=== PATIENT | female | born 1955 | race Caucasian/White ===

== ENCOUNTER 2024-12-05 22:43 | Emergency (ER) | payer MEDICARE ==
[2024-12-05] MEDS: methylPREDNISolone Sodium Succinate 125 MG/2 ML SDV IM ONE (23:19)
[2024-12-05] MEDS: EPINEPHrine 1 MG/ML SDV IM ONE (23:19)
[2024-12-05] MEDS: diphenhydrAMINE 25 MG Cap PO ONE (23:21)
[2024-12-05] MEDS: diphenhydrAMINE 50 MG/ML SDV IM ONE (23:22)
[2024-12-05] MEDS: predniSONE 20 MG Tab PO ONE (23:22)
== END 2024-12-06 01:12 | disposition home or self-care (01) ==
LOC: JP.ED 22:43
DX: T78.40XA Allergy, unspecified, initial encounter (principal); Z88.8 Allergy status to other drugs, medicaments and biological substances
CPT/HCPCS: 96372; 99283; J0171; J1200; J2919

== ENCOUNTER 2025-01-09 07:01 | Inpatient (IN) | payer MEDICARE ==
[~2025-01-09 07:01] MED LIST: Lactated Ringers 1,000 ML IV SCH; Nozin Nasal Sanitizer NASBOTH SCH; ceFAZolin 2 GM in Premix Bag 1 BAG IV ONE
[2025-01-09] MEDS ORDERED: fentaNYL 100 MCG/2 ML SDV ONE (07:22)
[2025-01-09] MEDS ORDERED: Midazolam 1 MG/ML 2 ML SDV ONE (07:22)
[2025-01-09] MEDS ORDERED: Propofol 200 MG/20 ML SDV ONE ×2 (07:22→10:47)
[2025-01-09 07:38] LABS: HEMATOCRIT 39.3 % (34.3-46.0); HEMOGLOBIN 13.4 g/dL (11.2-15.5); MEAN CORPUSCULAR HEMOGLOBIN 31.2 pg (31.6-35.5); MEAN CORPUSCULAR HGB CONC 34.1 g/dL (31.6-35.5); MEAN CORPUSCULAR VOLUME 91.4 fL (81.4-99.0); RED BLOOD CELL COUNT 4.3 M/uL (3.77-5.24); WHITE BLOOD CELL COUNT,WBC 9.1 K/uL (3.2-11.0)
[2025-01-09] MEDS ORDERED: Nozin Nasal Sanitizer NASBOTH ONE (08:00)
[2025-01-09 08:01] LABS: ALANINE AMINOTRANSFERASE,ALT 40 U/L (12-78); ALBUMIN 3.6 g/dL (3.4-5.0); ALKALINE PHOSPHATASE 108 U/L (46-116); ASPARTATE AMNIOTRANSFERASE,AST 32 U/L (15-37); BILIRUBIN TOTAL 0.5 mg/dL (0.2-1.0); BLOOD UREA NITROGEN,BUN 12 mg/dL (7-18); CALCIUM 9.6 mg/dL (8.5-10.1); CARBON DIOXIDE,CO2 31 mmol/L (21-32); CHLORIDE,CL 102 mmol/L (100-108); CREATININE 0.8 mg/dL (0.6-1.0); ESTIMATED GFR 80 mL/min (>60); GLUCOSE RANDOM 100 mg/dL (74-106); POTASSIUM,K 3.2 mmol/L (3.6-5.2); PROTEIN TOTAL,TP 7.3 g/dL (6.4-8.2); SODIUM,NA 139 mmol/L (140-148)
[2025-01-09 08:02] LABS: ANION GAP 9.2 mmol/L (5.0-14.0)
[2025-01-09] MEDS: Lactated Ringers 1,000 ML IV SCH (08:28)
[2025-01-09] MEDS: Nozin Nasal Sanitizer NASBOTH SCH ×2 (08:28→21:47)
[2025-01-09] MEDS: ceFAZolin 2 GM in Premix Bag 1 BAG IV ONE (10:20)
[2025-01-09] MEDS: Tranexamic Acid 1,000 MG in Sodium Chloride 0.9% 50 ML IV ONE (10:47)
[2025-01-09] MEDS: Bupivacaine 0.5% 50 ML MDV ONE (12:15)
[2025-01-09] MEDS ORDERED: Magnesium Hydroxide 400 MG/5 ML Susp 30 ML Cup PO PRN (12:30)
[2025-01-09] MEDS ORDERED: Ketoconazole 2% Crm 30 GM Tube TOP PRN (12:31)
[2025-01-09] MEDS ORDERED: oxyCODONE 5 MG Tab PO PRN ×2 (12:31→17:05)
[2025-01-09] MEDS ORDERED: Clobetasol 0.05% Crm 30 GM Tube TOP SCH (12:45)
[2025-01-09] MEDS: Ketorolac 15 MG/ML SDV IVPUSH PRN (13:47)
[2025-01-09] MEDS: oxyCODONE 5 MG Tab PO PRN ×2 (13:47→18:46)
[2025-01-09] MEDS: Sodium Chloride 0.9% 1,000 ML IV SCH (13:52)
[2025-01-09] MEDS ORDERED: valACYclovir 500 MG Tab PO PRN (14:02)
[2025-01-09] MEDS ORDERED: Hypromellose 0.3% Ophth Soln 15 ML Bottle EYEBOTH PRN (14:13)
[2025-01-09] MEDS: Acetaminophen 325 MG Tab PO SCH (14:14)
[2025-01-09] MEDS: Morphine 2 MG/ML SYRINGE IVPUSH PRN (14:34)
[2025-01-09] MEDS: ceFAZolin 2 GM in Premix Bag 1 BAG IV SCH (16:23)
[2025-01-09] MEDS: Pantoprazole 40 MG Tab.CR PO SCH (16:27)
[2025-01-09] MEDS ORDERED: Naloxone 0.4 MG/ML SDV IVPUSH PRN (16:39)
[2025-01-09] MEDS: HYDROmorphone 1 MG/ML Syringe IVPUSH ONE (16:48)
[2025-01-09] MEDS: Ondansetron 4 MG/2 ML SDV IVPUSH PRN (18:41)
[2025-01-09] MEDS: HYDROmorphone 1 MG/ML Syringe IVPUSH PRN (19:06)
[2025-01-09] MEDS ORDERED: Non-Formulary Medication 1 Each (Estradiol [Estrace 0.01% Vaginal Crm] 42.5 GM Tube) VAG SCH (21:00)
[2025-01-09] MEDS: Docusate Sodium 100 MG Cap PO PRN (22:35)
[2025-01-10] MEDS ORDERED: Non-Formulary Medication 1 Each (Omeprazole [Omeprazole] 20 MG Cap.Cr) PO SCH (09:00)
[2025-01-10] MEDS ORDERED: Non-Formulary Medication 1 Each (Turmeric [Turmeric] 400 MG Capsule) PO SCH (09:00)
[2025-01-10] MEDS: Aspirin 325 MG Tab.EC PO SCH (09:31)
[2025-01-10] MEDS: Multivitamins with Iron/Calcium/Folic Acid/Minerals Tab PO SCH (09:32)
[2025-01-10] MEDS: Fish Oil/Omega-3 Fatty Acids 1 Gm Cap PO SCH (09:32)
[2025-01-10] MEDS: HYDROmorphone 2 MG Tab PO PRN (14:13)
[2025-01-10] MEDS: Calcium Carbonate 500 MG Tab.Chew PO PRN (21:47)
[2025-01-11] MEDS: Sennosides 8.6 MG Tab PO PRN (08:35)
[2025-01-11] MEDS: Morphine 15 MG Tab.ER PO SCH (14:44)
== END 2025-01-12 11:25 | disposition home or self-care (01) | DRG 470 ==
LOC: JP.SDS 07:01 → JP.MS 12:30 → JP.SDS 01-10 11:32 → JP.MS 01-10 11:32
PROVIDERS: ADMIT Specialist; ATTEND Specialist
PROC: 0SRC069 Replacement of Right Knee Joint with Oxidized Zirconium on Polyethylene Synthetic Substitute, Cemented, Open Approach (ICD-10-PCS; principal; 2025-01-09 08:30)
DX: M17.11 Unilateral primary osteoarthritis, right knee (principal)
CPT/HCPCS: 01400-QZ; 36415; 73560-26-RT; 73560-RT; 80053; 84132; 85027; 97110-GP; 97116-GP; 97161-GP; 97165-GO; 97535-GO; A9270-GY; C1713; C1776; J0665; J0690; J1171; J1885; J2250; J2270; J2405; J2704; J3010; J7030; J7120

== ENCOUNTER 2025-04-28 17:40 | Emergency (ER) | payer MEDICARE ==
[2025-04-28] MEDS ORDERED: Sodium Chloride 0.9% 10 ML Syringe FLUSH PRN (19:10)
[2025-04-28] MEDS: Ondansetron 4 MG/2 ML SDV IVPUSH ONE (19:26)
[2025-04-28] MEDS: Ketorolac 15 MG/ML SDV IVPUSH ONE (19:26)
[2025-04-28] MEDS: Morphine 4 MG/ML Syringe IVPUSH ONE ×2 (19:26→21:43)
[2025-04-28] MEDS: HYDROmorphone 1 MG/ML Syringe IVPUSH ONE (21:43)
== END 2025-04-28 22:38 | disposition home or self-care (01) ==
LOC: JP.ED 17:40
DX: M25.562 Pain in left knee (principal); M79.662 Pain in left lower leg; I10 Essential (primary) hypertension; E78.00 Pure hypercholesterolemia, unspecified; Z88.8 Allergy status to other drugs, medicaments and biological substances; Z91.013 Allergy to seafood; Z79.899 Other long term (current) drug therapy
CPT/HCPCS: 93971; 96374; 96375; 99283; J1171; J1885; J2270; J2405

== ENCOUNTER 2025-06-10 09:05 | Inpatient (IN) | payer MEDICARE ==
[~2025-06-10 09:05] MED LIST changes: -Lactated Ringers 1,000 ML IV SCH; +Midazolam 1 MG/ML 2 ML SDV ONE; -Nozin Nasal Sanitizer NASBOTH SCH; +Propofol 200 MG/20 ML SDV ONE; -ceFAZolin 2 GM in Premix Bag 1 BAG IV ONE; +fentaNYL 100 MCG/2 ML SDV ONE
[2025-06-10 09:41] LABS: PLATELET COUNT,PLT 236.0 K/uL (130-375); RED BLOOD CELL COUNT 4.38 M/uL (3.77-5.24); WHITE BLOOD CELL COUNT,WBC 7.7 K/uL (3.2-11.0)
[2025-06-10] MEDS: Nozin Nasal Sanitizer NASBOTH SCH ×2 (09:58→21:43)
[2025-06-10] MEDS: Lactated Ringers 1,000 ML IV SCH (09:59)
[2025-06-10] MEDS ORDERED: Midazolam 1 MG/ML 2 ML SDV ONE (10:04)
[2025-06-10] MEDS ORDERED: fentaNYL 100 MCG/2 ML SDV ONE (10:04)
[2025-06-10] MEDS ORDERED: Propofol 200 MG/20 ML SDV ONE ×3 (10:04→12:07)
[2025-06-10 10:11] LABS: A/G RATIO 1.0 (1.2-2.2); ALANINE AMINOTRANSFERASE,ALT 65 U/L (12-78); ASPARTATE AMNIOTRANSFERASE,AST 41 U/L (15-37); BILIRUBIN TOTAL 0.6 mg/dL (0.2-1.0); BLOOD UREA NITROGEN,BUN 12 mg/dL (7-18); CARBON DIOXIDE,CO2 31 mmol/L (21-32); CHLORIDE,CL 103 mmol/L (100-108); CREATININE 0.7 mg/dL (0.6-1.0); EST CRCL DRUG DOSING (CG) 71.01 mL/min; ESTIMATED GFR 94 mL/min (>60); GLUCOSE RANDOM 97 mg/dL (74-106); POTASSIUM,K 3.4 mmol/L (3.6-5.2); PROTEIN TOTAL,TP 7.7 g/dL (6.4-8.2); SODIUM,NA 140 mmol/L (140-148)
[2025-06-10] MEDS ORDERED: Ondansetron 4 MG/2 ML SDV ONE (10:33)
[2025-06-10] MEDS ORDERED: Lactated Ringers 1,000 ML ONE (10:40)
[2025-06-10] MEDS ORDERED: Ketoconazole 2% Crm 30 GM Tube TOP PRN (13:06)
[2025-06-10] MEDS ORDERED: Ondansetron 4 MG/2 ML SDV IVPUSH PRN (13:07)
[2025-06-10] MEDS ORDERED: Magnesium Hydroxide 400 MG/5 ML Susp 30 ML Cup PO PRN (13:07)
[2025-06-10] MEDS ORDERED: Non-Formulary Medication 1 Each (Estradiol [Estrace 0.01% Vaginal Crm] 42.5 GM Tube) VAG SCH (13:15)
[2025-06-10] MEDS ORDERED: Naloxone 0.4 MG/ML SDV IVPUSH PRN (15:41)
[2025-06-10] MEDS: Ketorolac 30 MG/ML SDV IVPUSH PRN (20:07)
[2025-06-10] MEDS ORDERED: Hypromellose 0.3% Ophth Soln 15 ML Bottle EYEBOTH PRN (21:00)
[2025-06-11] MEDS: Aspirin 325 MG Tab.EC PO SCH (08:44)
[2025-06-11] MEDS: Calcium Carbonate/Vitamin D3 1500 MG-400 Units Tab PO SCH (08:44)
[2025-06-11] MEDS: Multivitamins with Iron/Calcium/Folic Acid/Minerals Tab PO SCH (08:44)
[2025-06-11] MEDS ORDERED: OMEGA PO SCH (09:00)
[2025-06-11] MEDS ORDERED: DHA PO SCH (09:00)
[2025-06-11] MEDS ORDERED: [UNRECOGNIZED DRUG - OTHER] PO SCH (09:00)
[2025-06-11] MEDS ORDERED: EPA PO SCH (09:00)
[2025-06-11] MEDS ORDERED: D3 PO SCH (09:00)
[2025-06-12] MEDS: Ondansetron 4 MG Tab.DIS PO PRN (09:10)
== END 2025-06-13 13:45 | disposition home or self-care (01) | DRG 470 ==
LOC: JP.SDS 09:05 → JP.MS 13:07 → JP.SDS 06-11 08:51 → JP.MS 06-11 08:52
PROVIDERS: ADMIT Physician Assistant; ATTEND Specialist
PROC: 0SRD0JZ Replacement of Left Knee Joint with Synthetic Substitute, Open Approach (ICD-10-PCS; principal; 2025-06-10 10:30)
PROC: 0SBC4ZZ Excision of Right Knee Joint, Percutaneous Endoscopic Approach (ICD-10-PCS; 2025-06-10 10:30)
DX: M17.12 Unilateral primary osteoarthritis, left knee (principal); M65.962 Unspecified synovitis and tenosynovitis, left lower leg; I10 Essential (primary) hypertension; M35.01 Sjogren syndrome with keratoconjunctivitis; G47.33 Obstructive sleep apnea (adult) (pediatric); E78.5 Hyperlipidemia, unspecified; E66.01 Morbid (severe) obesity due to excess calories; K21.9 Gastro-esophageal reflux disease without esophagitis; Z96.651 Presence of right artificial knee joint; Z79.899 Other long term (current) drug therapy; Z98.890 Other specified postprocedural states; Z79.891 Long term (current) use of opiate analgesic; Z88.8 Allergy status to other drugs, medicaments and biological substances; Z68.35 Body mass index [BMI] 35.0-35.9, adult
CPT/HCPCS: 36415; 73560-26-LT; 73560-LT; 80053; 85027; 97110-GP; 97116-GP; 97161-GP; 97165-GO; 97530-GP; 97535-GO; A4217; A9270-GY; C1713; C1776; J0131; J0665; J0690; J1171; J1885; J2250; J2405; J2704; J3010; J7120; Q0162

== ENCOUNTER 2025-09-24 06:30 | Day surgery (SDC) | payer MEDICARE ==
[2025-09-24] MEDS ORDERED: Midazolam 1 MG/ML 2 ML SDV ONE (07:22)
[2025-09-24] MEDS ORDERED: Propofol 200 MG/20 ML SDV ONE ×2 (07:23→07:50)
[2025-09-24] MEDS ORDERED: fentaNYL 50 MCG/ML SDV ONE (07:23)
[2025-09-24] MEDS: Lactated Ringers 1,000 ML IV SCH (07:55)
== END 2025-09-24 11:35 | disposition home or self-care (01) ==
LOC: JP.SDS 06:30
PROVIDERS: ATTEND Family Medicine
DX: Z12.11 Encounter for screening for malignant neoplasm of colon (principal); K29.50 Unspecified chronic gastritis without bleeding; D12.5 Benign neoplasm of sigmoid colon; K63.5 Polyp of colon; K26.9 Duodenal ulcer, unspecified as acute or chronic, without hemorrhage or perforation; K57.30 Diverticulosis of large intestine without perforation or abscess without bleeding; K21.9 Gastro-esophageal reflux disease without esophagitis; K30 Functional dyspepsia; Z86.0100 Personal history of colon polyps, unspecified
CPT/HCPCS: 43239; 45380; J2250; J2704; J3010; J7120; 00813-QZ; 88305